=== PATIENT | male | born 1965 | race Caucasian/White ===

== ENCOUNTER 2017-08-13 15:50 | Outpatient (RCR) | payer OTHER | END 2017-08-16 | LOC: PT 15:50 | PROVIDERS: ATTEND Specialist | DX: M17.11 Unilateral primary osteoarthritis, right knee (principal); M25.561 Pain in right knee; M62.81 Muscle weakness (generalized) ==

== ENCOUNTER 2017-09-03 16:57 | Outpatient (RCR) | payer OTHER ==
[2017-09-16] MEDS ORDERED: INVOKANA (13:03)
[2017-09-16] MEDS ORDERED: LUMIGAN2.5 M1 OP (13:03)
[2017-09-16] MEDS ORDERED: GLIMEPIRIDE4 MG (13:03)
[2017-09-16] MEDS ORDERED: LANTUS 3ML100 UNITS/ (13:03)
[2017-09-16] MEDS ORDERED: ATORVASTATIN CA20 MG PO (13:03)
[2017-09-16] MEDS ORDERED: COMBIGAN EYE DRO5 ML (13:03)
[2017-09-16] MEDS ORDERED: DORZOLAMIDE-TIM10 ML OP (13:03)
[2017-09-16] MEDS ORDERED: LISINOPRIL10 MG PO (13:03)
== END 2017-09-16 ==
LOC: PT 16:57
PROVIDERS: ATTEND Specialist
DX: M17.11 Unilateral primary osteoarthritis, right knee (principal); M25.561 Pain in right knee; M62.81 Muscle weakness (generalized)

== ENCOUNTER → 2017-09-20 | Day surgery (SDC) | payer OTHER ==
[2017-09-16 14:58] LABS: BASOPHILS # (AUTO) 0.1 (0.0-0.1); BASOPHILS % 0.4 % (0.0-1.0); EOSINOPHILS # (AUTO) 0.2 (0.0-0.4); EOSINOPHILS % 1.4 % (0.0-6.0); HEMATOCRIT 48.6 % (38.2-49.6); HEMOGLOBIN 16.1 g/dL (14.0-18.0); LYMPHOCYTES # (AUTO) 1.8 (1.0-3.2); LYMPHOCYTES % 15.3 % (18.0-39.1); MEAN CORPUSCULAR HEMOGLOBIN 28.4 pg (28-32); MEAN CORPUSCULAR HGB CONC 33.1 g/dL (31-35); MEAN CORPUSCULAR VOLUME 85.9 fL (81-99); MONOCYTES # (AUTO) 0.9 (0.2-0.8); MONOCYTES % 7.9 % (4.4-11.3); NEUTROPHILS # (AUTO) 8.6 (2.1-6.9); NEUTROPHILS % 74.7 % (38.7-80.0); PLATELET COUNT 221 x10e3/uL (140-360); RED BLOOD COUNT 5.66 x10e6/uL (4.3-5.7); RED CELL DISTRIBUTION WIDTH 14.1 % (11.7-14.4)
[~2017-09-20] MED LIST: ATORVASTATIN CA20 MG PO; COMBIGAN EYE DRO5 ML; DORZOLAMIDE-TIM10 ML OP; FENTANYL CITRATE/PF 100MCG/2 ML INJ ONE; GLIMEPIRIDE4 MG; HYOSCYAMINE SULFATE 0.5 MG/ML AMP ONE; INVOKANA; LANTUS 3ML100 UNITS/; LIDOCAINE HCL 2% LOCAL INJ 5 ML SDV VIAL INJ ONE; LISINOPRIL10 MG PO; LUMIGAN2.5 M1 OP; MIDAZOLAM HCL 2 MG/2 ML VIAL ONE; PROPOFOL IV EMULSION 10 MG/ML 50 ML VIAL ONE
--- NOTE | 2017-09-20 10:45 | Operative Report ---
DATE OF PROCEDURE: September 20, 2017 PROCEDURE PERFORMED: Colonoscopy and polypectomy. REFERRING PHYSICIAN: Dr. Poonam Guillaume INDICATIONS FOR COLONOSCOPY: Colorectal cancer screening. MEDICATION: Patient was done under MAC. Please see anesthesiologist note. PROCEDURE IN DETAIL: With the patient in left lateral decubitus position, a flexible fiberoptic Olympus colonoscope was inserted into the rectum with ease and advanced all the way to the cecum. A minute polyp was hot biopsied from the cecum. The scope was then withdrawn slowly. Mucosa overlying the ascending, transverse, and descending appeared to be within normal limits. One polyp was snared and one polyp was hot biopsied from the sigmoid colon. One polyp was snared from the rectum. The scope was then retroflexed into the distal rectum, and small internal hemorrhoids were noted, none of which was actively bleeding. The scope was then straightened out. The scope was subsequently withdrawn. Patient tolerated the procedure well. IMPRESSION: 1. Cecal polyp, hot biopsied. 2. Sigmoid colon polyps x2, one snared and one hot biopsied. 3. Rectal polyp x1, snared. 4. Internal hemorrhoids, none actively bleeding. PLAN: Follow up histology. Initiate high-fiber low-fat diet. Initiate high-fiber supplement. Patient will need a followup colonoscopy in 3 years. Job#: [id number] cc:POONAM GUILLAUME,
== END | disposition home or self-care (01) ==
LOC: OR 06:43
PROVIDERS: ATTEND Internal Medicine Gastroenterology
DX: Z12.11 Encounter for screening for malignant neoplasm of colon (principal); K63.5 Polyp of colon; D12.0 Benign neoplasm of cecum; Z87.442 Personal history of urinary calculi; K62.1 Rectal polyp; K64.8 Other hemorrhoids; Z01.812 Encounter for preprocedural laboratory examination; F41.9 Anxiety disorder, unspecified; I25.2 Old myocardial infarction
CPT/HCPCS: 36415 ×2; 45384; 45385; 82948; 85025; 93005; J1980; J2001; 45378; J2250

== ENCOUNTER → 2019-09-24 | Outpatient (CLI) | payer OTHER ==
[~2019-09-24] MED LIST changes: -FENTANYL CITRATE/PF 100MCG/2 ML INJ ONE; -HYOSCYAMINE SULFATE 0.5 MG/ML AMP ONE; -LIDOCAINE HCL 2% LOCAL INJ 5 ML SDV VIAL INJ ONE; -MIDAZOLAM HCL 2 MG/2 ML VIAL ONE; -PROPOFOL IV EMULSION 10 MG/ML 50 ML VIAL ONE
--- NOTE | 2019-09-24 16:27 | Diagnostic Imaging Report ---
EXAM: Focused Soft Tissue Ultrasound Evaluation of the right neck INDICATION: ^ENLARGED LYMPH NODES COMPARISON: None TECHNIQUE: Ram scale, color Doppler images of the right neck soft tissues were obtained. FINDINGS: Several lymph nodes measure up to 1.1 x 0.6 x 1.3 cm. IMPRESSION: Slightly enlarged right neck lymph nodes, possibly reactive. Signed by: Matias Garcia MD on 09/24/2019 4:24 PM
== END ==
LOC: US 14:28
PROVIDERS: ATTEND Family Medicine
DX: R22.0 Localized swelling, mass and lump, head (principal)
CPT/HCPCS: 76536

== ENCOUNTER → 2019-10-07 | Outpatient (CLI) | payer OTHER ==
[~2019-10-07] MED LIST changes: +IOPAMIDOL 370 MG/ML 200 ML INFUS..BTL INJ ONE; +SODIUM CHLORIDE 0.9% 50ML 50 ML ONE
[2019-10-07 12:23] LABS: BLOOD UREA NITROGEN 9 mg/dL (7-26); BUN/CREATININE RATIO 13 (6-25); EST GLOMERULAR FILTRATION RATE > 60 ML/MIN (60-)
--- NOTE | 2019-10-07 14:21 | Diagnostic Imaging Report ---
EXAMINATION: CT of the neck with contrast HISTORY: Enlarged cervical lymphadenopathy. History of prior tonsillectomy, diabetes. COMPARISON: None TECHNIQUE: Multidetector helical axial images were obtained from the sternal notch through the skull base during intravenous infusion of iodinated contrast material. Intravenous contrast: 100 mL of Isovue-370. Dose modulation, iterative reconstruction, and/or weight based adjustment of the mA/kV was utilized to reduce the radiation dose to as low as reasonably achievable. FINDINGS: Mass: None. Nodes: No lymphadenopathy. Sinuses: Well-circumscribed approximately 1.5 cm soft tissue density not significantly enhancing lesion along the anterior aspect of the left sphenoid sinus (along the sphenoid septum), almost contiguous with the posterior aspect of the nasal septum/perpendicular plate of the ethmoid. Probable mucous retention cyst in the floor of the left maxillary sinus. Remaining paranasal sinuses are clear. Oral cavity: Limited evaluation due to streak artifact from metallic dental fillings, grossly no abnormalities. Salivary glands: Parotid and submandibular glands unremarkable. Pharynx: Unremarkable. Larynx: Unremarkable. Thyroid gland: Unremarkable. Upper esophagus: Unremarkable. Blood vessels: Unremarkable. Bones: Unremarkable. IMPRESSION: 1. No neck mass or enlarged cervical lymphadenopathy. 2. Nonspecific soft tissue density lesion in the left sphenoid sinus, which may represent a polyp, comparison to prior studies if available is recommended, otherwise an ENT evaluation is advised. Signed by: Dr. Brenda Daniels M.D. on 10/07/2019 2:17 PM
== END ==
LOC: CT 11:28
PROVIDERS: ATTEND Family Medicine
DX: R59.0 Localized enlarged lymph nodes (principal)
CPT/HCPCS: 36415; 70491; 82565; 84520; Q9967

== ENCOUNTER → 2020-08-28 | Outpatient (CLI) | payer OTHER ==
[~2020-08-28] MED LIST changes: -IOPAMIDOL 370 MG/ML 200 ML INFUS..BTL INJ ONE; -SODIUM CHLORIDE 0.9% 50ML 50 ML ONE
== END ==
LOC: MRI 08:23
PROVIDERS: ATTEND Family Medicine
DX: M25.512 Pain in left shoulder (principal)